=== PATIENT | female | born 1985 | race African-American/Black ===

== ENCOUNTER 2017-01-23 00:42 | Emergency (ER) | payer OTHER, MEDICAID ==
[~2017-01-23] VITALS: Ht 165.1 cm; Wt 127.0 kg
[2017-01-23 05:11] LABS: CLARITY URINE CLOUDY (CLEAR); COLOR URINE YELLOW (YELLOW); GLUCOSE URINE NEGATIVE (NEGATIVE); KETONES URINE NEGATIVE (NEGATIVE); LEUKOCYTE ESTERASE URINE 1+ (NEGATIVE); NITRITE URINE NEGATIVE (NEGATIVE); OCCULT BLOOD URINE 3+ (NEGATIVE); PH URINE 5.5 (4.5-8.0); PROTEIN URINE TRACE (NEGATIVE); SPECIFIC GRAVITY URINE 1.022 (1.005-1.030)
[2017-01-23] MEDS ORDERED: PREDNISONE 20MG TABLET PO ONE (05:30)
[2017-01-23] MEDS ORDERED: IPRATROPIUM/ALBUTEROL 0.5-3(2.5)MG/3ML NEB HHN ONE (05:30)
[2017-01-23 10:36] VITALS: BP 128/86
== END 2017-01-23 10:39 | disposition home or self-care (01) ==
LOC: ER 00:42
DX: J45.31 Mild persistent asthma with (acute) exacerbation (principal); N39.0 Urinary tract infection, site not specified; N93.9 Abnormal uterine and vaginal bleeding, unspecified; R03.0 Elevated blood-pressure reading, without diagnosis of hypertension; F17.211 Nicotine dependence, cigarettes, in remission
CPT/HCPCS: 71020; 81001; 81025; 99285; J7512; Z7610